=== PATIENT | female | born 1955 | race Caucasian/White ===

== ENCOUNTER 2016-08-02 15:55 | Emergency (ER) | payer OTHER ==
--- NOTE | 2016-08-02 16:34 | EDPHY ---
H & P Stated Complaint: MISSED A STEP, INJURED R SHOULDER, R SIDE OF HEAD, Time Seen by Provider: 08/02/16 16:16 HPI/ROS: CHIEF COMPLAINT: Right shoulder pain HISTORY OF PRESENT ILLNESS: 60-year-old female presents emergency department complaining of right shoulder pain. Patient was walking down the stairs backwards holding onto the railing with her left hand when she missed a step fell down hitting her head and right shoulder on the wall. Patient remembers the entire accident, no loss of consciousness, no neck pain. She was able to ambulate after the fall. Patient reports she walked to her bedroom and laid down for a few minutes, her pain was not improving so she decided to come to the emergency department. Upon ambulation and of her bedroom she reports her pain was severe she developed nausea, lightheadedness and diaphoresis. This improved after sitting down. The patient denies abdominal pain, back pain, chest pain. She is left-hand dominant. REVIEW OF SYSTEMS: A comprehensive 10 point review of systems is otherwise negative aside from elements mentioned in the history of present illness. Source: Patient Exam Limitations: Clinical condition - Personal History Current Tetanus Diphtheria and Acellular Pertussis (TDAP): Yes Tetanus Vaccine Date: < 10 YEARS - Medical/Surgical History Hx Asthma: No Hx Chronic Respiratory Disease: No Hx Diabetes: No Hx Cardiac Disease: No Hx Renal Disease: No Hx Cirrhosis: No Hx Alcoholism: No Hx HIV/AIDS: No Hx Splenectomy or Spleen Trauma: No Other PMH: EPILEPSY, DEVELOPMENTALLY DELAYED - Social History Smoking Status: Never smoked - Physical Exam Exam: General Appearance: Alert, no distress, talking appropriately, comfortable. Head: Atraumatic without scalp tenderness or obvious injury Eyes: Pupils equal, round, reactive to light, EOMI, no trauma, no injection. Ears: Clear bilaterally, no perforation, no hemotympanum Nose: Atraumatic, no rhinorrhea, no septal hematoma Neck: The cervical spine is non-tender and there is no pain or neurologic deficits with active range of motion. Cardiovascular: Heart is regular rate and rhythm, systolic murmur Good capillary refill all extremities. Chest: Atraumatic, equal bilateral breath sounds. Chest is non-tender to palpation. Gastrointestinal: obese, Soft, non-tender, non-distended. No rebound, guarding , or peritoneal signs. There is no evidence of external or internal trauma. Back:There is no thoracic or lumbar spine or paraspinal tenderness. Extremities: Right wrist and right elbow with no tenderness to palpation or swelling, cap refill less than 2 seconds, 2+ radial pulses, right shoulder with decreased range of motion due to pain, tenderness to palpation over clavicle Neurological: grossly intact, follows commands, no facial asymmetry, moves all extremities Skin: No lacerations, españa, or abrasions. Constitutional: Initial Vital Signs Temperature (C) 36.4 C 08/02/16 16:03 Heart Rate 68 08/02/16 16:03 Respiratory Rate 16 08/02/16 16:03 Blood Pressure 85/43 L 08/02/16 16:03 O2 Sat (%) 97 08/02/16 16:03 O2 Delivery Mode Room Air Allergies/Adverse Reactions: Penicillins Allergy (Verified 08/02/16 16:06) Home Medications: Medication Instructions Recorded Carbamazepine 08/02/16 Hydrocodone/APAP 5/325 [[place] 1 tab PO Q4H PRN #7 tab 08/02/16 5/325] PHENOBARBITAL 08/02/16 Statin 08/02/16 Supplements 08/02/16 Medical Decision Making - Diagnostics Imaging Results: Distal clavicle fracture on right Imaging: I viewed and interpreted images myself ED Course/Re-evaluation: Patient with right shoulder pain after slip down stairs falling against wall onto right shoulder. Patient did strike the right side of her head against a wall, no loss of consciousness, acting appropriate, no neck pain. She is not anticoagulated. On arrival the patient has a blood pressure of 85/40 complains of nausea and diaphoresis, she is placed in bed, symptoms improved and blood pressure repeat was 110/60. Right shoulder x-ray obtained showing a distal clavicle fracture. Patient with a normal neuro exam. Patient was placed in a sling and will be discharged home. She is placed in knee high Davon hose. She is flying home to [place] tomorrow. She already takes 1 aspirin daily. I recommended ankle pumps every hour while flying and getting up and walking around the airplane. They will call her orthopedist in the morning to schedule appointment to be seen on return home. Patient is given strict return precautions for any neurovascular compromise or any signs of a head injury. Differential Diagnosis: The differential diagnosis for the patient's trauma included but was not limited to intracranial injury, long bone and pelvic bone fractures, spinal injury, intra-abdominal injury, and intra-thoracic injury. Departure - Departure Disposition: Home, Routine, Self-Care Clinical Impression: Closed fracture of distal clavicle Qualifiers: Encounter type: initial encounter Fracture alignment: nondisplaced Laterality: right Qualified Code(s): S42.034A - Nondisplaced fracture of lateral end of right clavicle, initial encounter for closed fracture Minor head injury without loss of consciousness Qualifiers: Encounter type: initial encounter Qualified Code(s): S09.90XA - Unspecified injury of head, initial encounter Condition: Good Instructions: Clavicle Fracture (ED), Head Injury (ED), Hydrocodone/ Acetaminophen (By mouth) Additional Instructions: Wear sling for comfort, ice to your shoulder, take 400 mg of ibuprofen every 8 hours with food for 3-5 days for pain, take 650 mg of Tylenol every 8 hours as needed for pain, take 1 [place] every 6-8 hours as needed for severe pain. [place] has Tylenol in it, do not take more than 3000 mg of Tylenol in 24 hours. Wear Davon hose until your follow-up appointment with your orthopedist back home. Do ankle pumps 10 times an hour each leg while on the airplane, get up and walk down the aisle every hour. Call your orthopedist 1st thing in the morning to schedule an appointment to be seen at 1st available appointment. Return to the emergency department for any numbness or tingling to your arm, discoloration of your arm, any new symptoms or concerns. Return to the emergency department for any forceful vomiting, confusion, altered gait, any new symptoms or concerns. Referrals: KITTY ESTEVES [Other] - As per Instructions Prescriptions: Hydrocodone/APAP 5/325 [[place] 5/325] 1 tab PO Q4H PRN #7 tab PRN Reason: Pain, Moderate
[2016-08-02] MEDS ORDERED: HYDROCODONE/APAP 5/325 TAB PO ONE (16:44)
[2016-08-02] MEDS ORDERED: HYDROCOD/APAP 5/325 PREPACK#6 BTL TAKEHOME ONE (17:02)
[2016-08-02 17:30] VITALS: BP 115/60; PULSE 78; RESP 18; TEMP 98.2; O2SAT 96
== END 2016-08-02 17:28 | disposition home or self-care (01) ==
DX: S42.034A Nondisplaced fracture of lateral end of right clavicle, initial encounter for closed fracture (principal); S09.90XA Unspecified injury of head, initial encounter; W10.9XXA Fall (on) (from) unspecified stairs and steps, initial encounter; Y99.8 Other external cause status; Y93.01 Activity, walking, marching and hiking
CPT/HCPCS: 73030; 99283; A4565